=== PATIENT | male | born 1995 | race Caucasian/White ===

== ENCOUNTER 2018-11-27 08:02 | Emergency (ER) | payer BC ==
[~2018-11-27] VITALS: Ht 177.8 cm; Wt 72.1 kg
[2018-11-27 08:10] VITALS: BP 119/63; Ht 177.8 cm; Wt 72.1 kg
== END 2018-11-27 09:39 | disposition home or self-care (01) ==
LOC: ED 08:02
DX: K12.2 Cellulitis and abscess of mouth (principal)
CPT/HCPCS: J1100; J1200